=== PATIENT | female | born 1955 | race Caucasian/White ===

== ENCOUNTER 2017-01-18 11:14 | Emergency (ER) | payer SELFPAY ==
--- NOTE | 2017-01-18 12:53 | RAD ---
RADIOGRAPH LEFT KNEE 4 VIEWS: DATE: 01/18/17. HISTORY: A 61-year-old female with popliteal knee pain. FINDINGS: No fracture or dislocation. Joint spaces are maintained in all 3 compartments with no erosions. Min imal osteophytosis of medial compartment. No moderate-sized or large osteophytes. Tiny suprapatella r joint effusion. No soft tissue calcifications. IMPRESSION: 1. Minimal osteoarthrosis of the medial compartment. 2. Minimal joint effusion. 3. Otherwise, negative. POS: [facility]
[2017-01-18] MEDS ORDERED: Ketorolac Tromethamine 30 MG/ML VIAL ONE (13:11)
[2017-01-18] MEDS ORDERED: HYDROcodone/Acetaminophen 7.5/325 mg Tablet ONE (13:11)
== END 2017-01-18 13:38 | disposition home or self-care (01) ==
LOC: ERS 11:14
DX: M25.562 Pain in left knee (principal)
CPT/HCPCS: 96372; J1885

== ENCOUNTER 2017-01-22 01:50 | Outpatient (CLI) | payer OTHER | END 2017-01-22 01:51 | disposition home or self-care (01) | LOC: BICULT 01:50 | PROVIDERS: ATTEND Internal Medicine | DX: Z53.9 Procedure and treatment not carried out, unspecified reason (principal) ==